=== PATIENT | female | born 1930 | race Caucasian/White ===

== ENCOUNTER → 2016-07-13 | Outpatient (CLI) | payer MEDICARE ==
[~2016-07-13] MED LIST: ACET1TAB25 PO; ACET325T51 PO; AMLO10TA62 PO; ASPI-730 PO; ATOR10TA64 PO; CARB1TAB20 PO; DONE10TA30 PO; ESCI20TA30 PO; FLUT16SP EA NOSTRIL; FURO-153 PO; IBUP-1724 PO; INSU100V13 SQ; INSU100V8 SQ; LEVO100T83 PO; MELA1TAB21 PO; MEMA5TAB7 PO; METF-47 PO; METO25TA41 PO; NITR0.4T SL; PRIM50TA27 PO; PRIM50TA30 PO; ZOLE5INF7 IV
== END ==
LOC: IMA 12:54
PROVIDERS: ATTEND Family Medicine
DX: Z12.31 Encounter for screening mammogram for malignant neoplasm of breast (principal); M84.88 Other disorders of continuity of bone, other site; M81.0 Age-related osteoporosis without current pathological fracture; E28.39 Other primary ovarian failure; Z87.828 Personal history of other (healed) physical injury and trauma
CPT/HCPCS: 77063; 77080; G0202